=== PATIENT | female | born 1980 | race Caucasian/White ===

== ENCOUNTER → 2017-08-21 | Outpatient (CLI) | payer BC ==
[~2017-08-21] MED LIST: AMOX875 PO; BENTYL; BUSP5 PO; CALCA500CH PO; CITA10S PO; CYCL10 PO; DOCU100 PO; HYDACE5 PO; HYDACE5325; HYDMOR2 PO; HYDMOR4 PO; HYDR1TAB94 PO; Humulin N100 UNIT/1 SQ; IBUP600 PO; IBUP800 PO; INSLIS75I SC; INSUL100I SC; LABE100 PO; LABE200 PO; METF500 PO; METF500C PO; METO50ER PO; METR500 PO; MORP30ER PO; MULVITA PO; NAPR500 PO; NAPR500ERA PO; NUVARING; ONDA8 PO; OXYACE5T PO; PROACE100 PO; PROM25 PO; PROM25S PR; RXOXYACE PO; RXPROM25 PO; Roxicodone5 MG PO; SEPTRA; SULTRIDS PO; TAMS.4ER PO; TRAM50 PO; TRIBENZOR 40-51 EACH PO; VITAMINS; Venlafaxine HCl50 MG PO; Verotin-Gr Cap1 EACH PO; [UNRECOGNIZED DRUG - OTHER]; [UNRECOGNIZED DRUG - OTHER]; [UNRECOGNIZED DRUG - OTHER]
[2017-08-21 19:48] LABS: BASOPHILS ABSOLUTE AUTO 0.06 K/mm3 (0.00-0.23); BASOPHILS PERCENT AUTO 0 % (0-2); EOSINOPHILS ABSOLUTE AUTO 0.42 K/mm3 (0.00-0.68); EOSINOPHILS PERCENT AUTO 3 % (0-6); Hematocrit 39.9 % (33.0-51.0); Hemoglobin 13.1 g/dL (11.5-16.0); IMMATURE GRAN ABSOLUTE AUTO 0.21 K/mm3 (0.00-0.10); IMMATURE GRAN PERCENT AUTO 2 % (0-1); LYMPHOCYTES ABSOLUTE AUTO 2.92 K/mm3 (0.84-5.20); LYMPHOCYTES PERCENT AUTO 21 % (21-46); MONOCYTES ABSOLUTE AUTO 0.94 K/mm3 (0.16-1.47); MONOCYTES PERCENT AUTO 7 % (4-13); Mean Corpuscular HGB 29.9 pg (26.0-34.0); Mean Corpuscular HGB Conc 32.8 g/dL (31.5-36.5); Mean Corpuscular Volume 91 fL (80-100); Mean Platelet Volume 10.5 fL (9.1-12.4); NEUTROPHILS ABSOLUTE AUTO 9.26 K/mm3 (1.96-9.15); NEUTROPHILS PERCENT AUTO 67 % (41-73); Platelet Count 295 K/mm3 (150-400); RDW Coefficient Variation 14.7 % (11.7-14.2); RDW Standard Deviation 48.9 fL (35.1-46.3); Red Blood Cell Count 4.38 M/mm3 (3.80-5.20); White Blood Cell Count 13.81 K/mm3 (4.00-11.30)
[2017-08-21 20:09] LABS: Alanine Aminotransfer (ALT/SGP 25 U/L (12-78); Albumin, Blood 3.5 g/dL (3.4-5.0); Albumin/Globulin Ratio 0.9 (0.8-1.8); Alk Phos 115 U/L (50-136); Anion Gap 9 mmol/L (6-16); Aspartate Aminotrans (AST/SGOT 14 U/L (12-37); Bilirubin, Total 0.3 mg/dL (0.1-1.0); Blood Urea Nitrogen 10 mg/dL (8-24); Bun/Creatinine Ratio 16.1 (12.0-20.0); CO2, Blood 27 mmol/L (21-32); Calcium, Blood 9.2 mg/dL (8.5-10.1); Chloride, Blood 102 mmol/L (98-108); Creatinine, Blood 0.62 mg/dL (0.40-1.00); Glomerular Filtration Rate >60 (60-); Glucose, Blood 159 mg/dL (70-99); Potassium, Blood 3.5 mmol/L (3.5-5.5); Sodium, Blood 138 mmol/L (136-145); Total Protein, Blood 7.5 g/dL (6.4-8.2)
== END ==
LOC: LAB SHORT 19:27
PROVIDERS: Nurse Practitioner
DX: J02.9 Acute pharyngitis, unspecified (principal)
CPT/HCPCS: 80053; 85025

== ENCOUNTER 2020-01-20 18:25 | Emergency (ER) | payer OTHER, BC ==
[~2020-01-20] VITALS: Ht 162.6 cm; Wt 136.1 kg
[2020-01-20 19:09] LABS: BASOPHILS ABSOLUTE AUTO 0.06 K/mm3 (0.00-0.23); BASOPHILS PERCENT AUTO 1 % (0-2); EOSINOPHILS ABSOLUTE AUTO 0.29 K/mm3 (0.00-0.68); EOSINOPHILS PERCENT AUTO 3 % (0-6); Hemoglobin 14.1 g/dL (11.5-16.0); IMMATURE GRAN ABSOLUTE AUTO 0.07 K/mm3 (0.00-0.10); IMMATURE GRAN PERCENT AUTO 1 % (0-1); LYMPHOCYTES PERCENT AUTO 32 % (21-46); MONOCYTES ABSOLUTE AUTO 0.79 K/mm3 (0.16-1.47); MONOCYTES PERCENT AUTO 8 % (4-13); Mean Corpuscular HGB 30.7 pg (26.0-34.0); Mean Corpuscular HGB Conc 32.8 g/dL (31.5-36.5); Mean Corpuscular Volume 94 fL (80-100); Mean Platelet Volume 10.1 fL (9.1-12.4); NEUTROPHILS ABSOLUTE AUTO 5.43 K/mm3 (1.96-9.15); NEUTROPHILS PERCENT AUTO 56 % (41-73); Platelet Count 249 K/mm3 (150-400); RDW Coefficient Variation 14.5 % (11.7-14.2); RDW Standard Deviation 49.1 fL (35.1-46.3); Red Blood Cell Count 4.59 M/mm3 (3.80-5.20); White Blood Cell Count 9.74 K/mm3 (4.00-11.30)
[2020-01-20 19:27] LABS: Alanine Aminotransfer (ALT/SGP 38 U/L (12-78); Albumin, Blood 3.8 g/dL (3.4-5.0); Albumin/Globulin Ratio 1.1 (0.8-1.8); Alk Phos 79 U/L (50-136); Anion Gap 8 mmol/L (6-16); Aspartate Aminotrans (AST/SGOT 28 U/L (12-37); Bilirubin, Total 0.8 mg/dL (0.1-1.0); Blood Urea Nitrogen 13 mg/dL (8-24); Bun/Creatinine Ratio 23.1 (12.0-20.0); CO2, Blood 26 mmol/L (21-32); Calcium, Blood 9.5 mg/dL (8.5-10.1); Chloride, Blood 101 mmol/L (98-108); Creatinine, Blood 0.56 mg/dL (0.40-1.00); Globulin, Blood 3.5 g/dL (2.2-4.0); Glomerular Filtration Rate >60 (60-); Glucose, Blood 158 mg/dL (70-99); Potassium, Blood 3.9 mmol/L (3.5-5.5); Sodium, Blood 135 mmol/L (136-145); Total Protein, Blood 7.3 g/dL (6.4-8.2)
[2020-01-20] MEDS ORDERED: METF500 PO (21:44)
== END 2020-01-20 21:47 | disposition home or self-care (01) ==
LOC: ER 18:25
PROVIDERS: Emergency Medicine
DX: R51 Headache (principal); I10 Essential (primary) hypertension; F41.9 Anxiety disorder, unspecified; F32.9 Major depressive disorder, single episode, unspecified; E11.9 Type 2 diabetes mellitus without complications; Z87.891 Personal history of nicotine dependence
CPT/HCPCS: 36415; 80053; 85025; 93005; 93010; 96374; 99283-25; J1885; J2765

== ENCOUNTER → 2020-05-11 | Outpatient (CLI) | payer OTHER, BC | LOC: LAB SHORT 17:10 → LAB 17:10 | DX: D48.5 Neoplasm of uncertain behavior of skin (principal) | CPT/HCPCS: 87070; 87205 ==

== ENCOUNTER → 2021-04-25 | Outpatient (CLI) | payer OTHER, BC | LOC: LAB SHORT 17:40 → LAB 17:40 | DX: L08.9 Local infection of the skin and subcutaneous tissue, unspecified (principal) | CPT/HCPCS: 87070; 87077; 87186; 87205 ==

== ENCOUNTER 2021-05-22 17:07 | Inpatient (IN) | payer OTHER, BC ==
[~2021-05-22] VITALS: Ht 162.6 cm; Wt 132.0 kg
[2021-05-22 18:43] LABS: SARS-Cov-2 (COVID-19) PCR, MMC NEGATIVE (NEGATIVE)
[2021-05-22] MEDS ORDERED: ESCI10 PO (18:54)
[2021-05-22] MEDS ORDERED: Bystolic20 MG PO (18:55)
[2021-05-22] MEDS ORDERED: OLMESARTAN MEDO20 MG PO (18:55)
[2021-05-22 22:15] LABS: BASOPHILS ABSOLUTE AUTO 0.02 K/mm3 (0.00-0.23); BASOPHILS PERCENT AUTO 0 % (0-2); EOSINOPHILS ABSOLUTE AUTO 0.07 K/mm3 (0.00-0.68); EOSINOPHILS PERCENT AUTO 1 % (0-6); Hematocrit 42.5 % (33.0-51.0); Hemoglobin 14.1 g/dL (11.5-16.0); IMMATURE GRAN ABSOLUTE AUTO 0.04 K/mm3 (0.00-0.10); IMMATURE GRAN PERCENT AUTO 1 % (0-1); LYMPHOCYTES ABSOLUTE AUTO 1.51 K/mm3 (0.84-5.20); LYMPHOCYTES PERCENT AUTO 20 % (21-46); MONOCYTES PERCENT AUTO 9 % (4-13); Mean Corpuscular HGB Conc 33.2 g/dL (31.5-36.5); Mean Corpuscular Volume 93 fL (80-100); Mean Platelet Volume 10.7 fL (9.1-12.4); NEUTROPHILS ABSOLUTE AUTO 5.12 K/mm3 (1.96-9.15); NEUTROPHILS PERCENT AUTO 69 % (41-73); Platelet Count 189 K/mm3 (150-400); RDW Coefficient Variation 15.2 % (11.7-14.2); RDW Standard Deviation 52.2 fL (35.1-46.3); Red Blood Cell Count 4.55 M/mm3 (3.80-5.20); White Blood Cell Count 7.46 K/mm3 (4.00-11.30)
[2021-05-22 22:24] LABS: Anion Gap 9 mmol/L (6-16); Blood Urea Nitrogen 15 mg/dL (8-24); CO2, Blood 24 mmol/L (21-32); Calcium, Blood 9.4 mg/dL (8.5-10.1); Chloride, Blood 105 mmol/L (98-108); Glomerular Filtration Rate >60 (60-); Glucose, Blood 207 mg/dL (70-99); Magnesium, Blood 1.5 mg/dL (1.6-2.4); Potassium, Blood 3.4 mmol/L (3.5-5.5); Sodium, Blood 138 mmol/L (136-145)
[2021-05-23 04:22] LABS: BASOPHILS ABSOLUTE AUTO 0.01 K/mm3 (0.00-0.23); BASOPHILS PERCENT AUTO 0 % (0-2); EOSINOPHILS ABSOLUTE AUTO 0.01 K/mm3 (0.00-0.68); EOSINOPHILS PERCENT AUTO 0 % (0-6); Hematocrit 41.1 % (33.0-51.0); Hemoglobin 13.4 g/dL (11.5-16.0); IMMATURE GRAN ABSOLUTE AUTO 0.02 K/mm3 (0.00-0.10); IMMATURE GRAN PERCENT AUTO 0 % (0-1); LYMPHOCYTES ABSOLUTE AUTO 0.75 K/mm3 (0.84-5.20); LYMPHOCYTES PERCENT AUTO 13 % (21-46); MONOCYTES ABSOLUTE AUTO 0.14 K/mm3 (0.16-1.47); MONOCYTES PERCENT AUTO 3 % (4-13); Mean Corpuscular HGB 30.3 pg (26.0-34.0); Mean Corpuscular HGB Conc 32.6 g/dL (31.5-36.5); Mean Corpuscular Volume 93 fL (80-100); Mean Platelet Volume 10.8 fL (9.1-12.4); NEUTROPHILS ABSOLUTE AUTO 4.73 K/mm3 (1.96-9.15); NEUTROPHILS PERCENT AUTO 83 % (41-73); Platelet Count 197 K/mm3 (150-400); RDW Coefficient Variation 15.2 % (11.7-14.2); RDW Standard Deviation 51.9 fL (35.1-46.3); Red Blood Cell Count 4.42 M/mm3 (3.80-5.20); White Blood Cell Count 5.66 K/mm3 (4.00-11.30)
[2021-05-23 04:41] LABS: Anion Gap 10 mmol/L (6-16); Blood Urea Nitrogen 11 mg/dL (8-24); Bun/Creatinine Ratio 20.3 (12.0-20.0); CO2, Blood 20 mmol/L (21-32); Calcium, Blood 8.9 mg/dL (8.5-10.1); Chloride, Blood 108 mmol/L (98-108); Creatinine, Blood 0.54 mg/dL (0.40-1.00); Glomerular Filtration Rate >60 (60-); Glucose, Blood 298 mg/dL (70-99); Potassium, Blood 4.1 mmol/L (3.5-5.5); Sodium, Blood 138 mmol/L (136-145)
--- NOTE | 2021-05-23 08:07 | NUR ---
ASSUMED CARE THIS AM PT. ALERT AND ORIENTED. SITTING UP IN BED ON RA. PT. DENIES PAIN THIS AM. PT DENIES ANY FEELING OF SOB. REPORTS BREATHING FEELS "MUCH BETTER" THIS AM. PT. INDEPENDENT IN ROOM, ABLE TO REPOSITION SELF NEEDED. VSS THIS AM. NADN. CALL LIGHT IN REACH, BED IN LOW POSITION.
--- NOTE | 2021-05-23 10:49 | NUR ---
rounded on pt. awaiting visit from to be discharged home. resting comfortably in bed. sujey.
--- NOTE | 2021-05-23 14:59 | NUR ---
ROUNDED ON PT. RESTING COMFORTABLY IN BED, PT AT BEDSIDE. AWAITING LAB WORK TO DETERMIN IF PT WILL BE STAYING TONIGHT OR GETTING DISCHARGED HOME. VSS AT THIS TIME.
[2021-05-23] MEDS ORDERED: PANT20 PO (16:09)
[2021-05-23] MEDS ORDERED: ALBU90OI INH (16:10)
[2021-05-23] MEDS ORDERED: SYMBICORT 80-10.2 GM INH (16:11)
[2021-05-23] MEDS ORDERED: Prednisone10 MG (16:13)
--- NOTE | 2021-05-23 16:40 | NUR ---
DISCHARGE. PT. DISCHARGED TO HOME. PT TO DRIVE PT HOME. TAKEN TO EXIT VIA WHEELCHAIR. PRIOR TO DISCHARGE PT. LS CLEAR, OCCASIONAL DRY COUGH WITH WHEEZE. SOLUMEDROL DOSE GIVEN PRIOR TO DISCHARGE. IV REMOVED PRIOR TO DSICHARGE. PT TO FOLLOW UP WITH PCP AND ENCOURAGED TO RETURN FOR WORSENING SYMPTOMS. MEDICATIONS CALLED INTO [facility] PER PT. REQUEST. VSS UPON DISCHARGE.
== END 2021-05-23 16:41 | disposition home or self-care (01) | DRG 202 ==
LOC: ER 17:07 → ERHOLD 23:51 → PCU 05-23 01:24
PROVIDERS: Physician Assistant; Student in an Organized Health Care Education/Training Program; ADMIT Internal Medicine
DX: J45.901 Unspecified asthma with (acute) exacerbation (principal); Z68.42 Body mass index [BMI] 45.0-49.9, adult; E66.01 Morbid (severe) obesity due to excess calories; E83.42 Hypomagnesemia; Z20.822 Contact with and (suspected) exposure to COVID-19; E11.9 Type 2 diabetes mellitus without complications; F41.9 Anxiety disorder, unspecified; F32.A Depression, unspecified; K21.9 Gastro-esophageal reflux disease without esophagitis; G47.33 Obstructive sleep apnea (adult) (pediatric); E87.6 Hypokalemia; Z87.442 Personal history of urinary calculi; Z88.1 Allergy status to other antibiotic agents; Z88.5 Allergy status to narcotic agent; Z91.041 Radiographic dye allergy status; Z90.49 Acquired absence of other specified parts of digestive tract; Z98.890 Other specified postprocedural states; Z79.84 Long term (current) use of oral hypoglycemic drugs; Z79.899 Other long term (current) drug therapy; Z71.6 Tobacco abuse counseling
CPT/HCPCS: 36415; 71045; 80048; 82947; 83735; 83880; 84145; 85025; 93005; 93010; 94640; 94644; 94645; 94660; 94760; 96374; 99285-25; A9270; C9113; J1815; J2930; J3475; J7030; J7512; U0004

== ENCOUNTER 2025-02-25 14:17 | Inpatient (IN) | payer OTHER, BC ==
[~2025-02-25] VITALS: Ht 170.2 cm; Wt 117.6 kg
[~2025-02-25 14:17] MED LIST changes: +ALBU90OI INH; +Bystolic20 MG PO; +ESCI10 PO; +OLMESARTAN MEDO20 MG PO; +PANT20 PO; +Prednisone10 MG; +SYMBICORT 80-10.2 GM INH
[2025-02-25] MEDS ORDERED: Ipratropium/Albuterol SulF 2.5-0.5MG/3 ML Amp INH PRN (14:55)
[2025-02-25 15:26] LABS: BASOPHILS ABSOLUTE AUTO 0.02 K/mm3 (0.00-0.23); BASOPHILS PERCENT AUTO 0 % (0-2); EOSINOPHILS ABSOLUTE AUTO 0.09 K/mm3 (0.00-0.68); EOSINOPHILS PERCENT AUTO 2 % (0-6); Hematocrit 38.1 % (33.0-51.0); Hemoglobin 12.8 g/dL (11.5-16.0); IMMATURE GRAN ABSOLUTE AUTO 0.02 K/mm3 (0.00-0.10); IMMATURE GRAN PERCENT AUTO 0 % (0-1); LYMPHOCYTES ABSOLUTE AUTO 0.83 K/mm3 (0.84-5.20); LYMPHOCYTES PERCENT AUTO 15 % (21-46); MONOCYTES ABSOLUTE AUTO 0.57 K/mm3 (0.16-1.47); MONOCYTES PERCENT AUTO 10 % (4-13); Mean Corpuscular HGB Conc 33.6 g/dL (31.5-36.5); Mean Corpuscular Volume 88 fL (80-100); NEUTROPHILS ABSOLUTE AUTO 4.19 K/mm3 (1.96-9.15); NEUTROPHILS PERCENT AUTO 73 % (41-73); NRBC ABSOLUTE 0.00 K/mm3 (0.00-0.02); NRBC Auto 0.0 /100 WBC (0.0-0.2); Platelet Count 219 K/mm3 (150-400); RDW Coefficient Variation 14.5 % (11.7-14.2); RDW Standard Deviation 46.6 fL (35.1-46.3)
[2025-02-25] MEDS ORDERED: Albuterol 2.5 MG/3 ML VIAL INH SCH (15:35)
[2025-02-25] MEDS ORDERED: NS 1,000 ML IV SCH ×2 (15:40→16:40)
[2025-02-25] MEDS ORDERED: CefTRIAXone Sodium 1,000 MG in NS 50 ML IV ONE (15:40)
[2025-02-25 15:45] LABS: Alanine Aminotransfer (ALT/SGP 27.0 U/L (12-78); Albumin, Blood 2.6 g/dL (3.4-5.0); Albumin/Globulin Ratio 0.5 (0.8-1.8); Anion Gap 11.0 mmol/L (3-11); Aspartate Aminotrans (AST/SGOT 26.0 U/L (12-37); Bilirubin, Total 0.7 mg/dL (0.1-1.0); Blood Urea Nitrogen 12.0 mg/dL (8-24); CO2, Blood 23.0 mmol/L (21-32); Calcium, Blood 8.7 mg/dL (8.5-10.1); Chloride, Blood 105.0 mmol/L (98-108); Creatinine, Blood 0.6 mg/dL (0.40-1.00); Globulin, Blood 4.9 g/dL (2.2-4.0); Glucose, Blood 142.0 mg/dL (70-99); Potassium, Blood 3.6 mmol/L (3.5-5.5); Sodium, Blood 135.0 mmol/L (136-145); Total Protein, Blood 7.5 g/dL (6.4-8.2)
[2025-02-25] MEDS ORDERED: Insulin Human Lispro 100 Units/ML 3ML Syringe SC SCH (16:30)
[2025-02-25 16:34] LABS: Influenza A, PCR NEGATIVE (NEGATIVE); Influenza B, PCR NEGATIVE (NEGATIVE); Resp Syncytial Virus, PCR NEGATIVE (NEGATIVE); SARS-Cov-2 (COVID-19) PCR, MMC NEGATIVE (NEGATIVE)
[2025-02-25] MEDS ORDERED: Prochlorperazine Edisylate 10 mg Vial IV PRN (16:35)
[2025-02-25] MEDS ORDERED: Ipratropium/Albuterol SulF 2.5-0.5MG/3 ML Amp INH SCH (16:50)
[2025-02-25] MEDS ORDERED: Albuterol 2.5 MG/3 ML VIAL INH PRN (16:50)
[2025-02-25] MEDS ORDERED: Lactobacil 2-S.Thermo-Bifido 1 1 Cap PO SCH (21:00)
[2025-02-25] MEDS ORDERED: NS 1,000 ML IV ONE ×2 (21:35→23:50)
[2025-02-25] MEDS ORDERED: NEBI10 PO (22:22)
[2025-02-25] MEDS ORDERED: OZEMPIC2 MG/0.75 SC (22:24)
[2025-02-26] VITALS (7 sets, daily range): BP systolic 106–167; BP diastolic 79–94
[2025-02-26 05:45] LABS: Hematocrit 35.1 % (33.0-51.0); Hemoglobin 11.3 g/dL (11.5-16.0); Mean Corpuscular HGB Conc 32.2 g/dL (31.5-36.5); Mean Corpuscular Volume 92 fL (80-100); NRBC ABSOLUTE 0.00 K/mm3 (0.00-0.02); NRBC Auto 0.0 /100 WBC (0.0-0.2); Platelet Count 185 K/mm3 (150-400); RDW Coefficient Variation 14.5 % (11.7-14.2); RDW Standard Deviation 49.2 fL (35.1-46.3)
[2025-02-26 06:04] LABS: Albumin, Blood 2.2 g/dL (3.4-5.0); Anion Gap 12 mmol/L (3-11); Blood Urea Nitrogen 10 mg/dL (8-24); CO2, Blood 18 mmol/L (21-32); Calcium, Blood 7.9 mg/dL (8.5-10.1); Chloride, Blood 109 mmol/L (98-108); Creatinine, Blood 0.47 mg/dL (0.40-1.00); Glucose, Blood 224 mg/dL (70-99); Magnesium, Blood 2.0 mg/dL (1.6-2.4); Phosphorus, Blood 2.4 mg/dL (2.5-4.9); Potassium, Blood 3.7 mmol/L (3.5-5.5); Sodium, Blood 135 mmol/L (136-145)
--- NOTE | 2025-02-26 06:18 | NUR ---
PT ARRIVED TO FLOOR FROM ED VIA STRETCHER. PT ABLE TO AMBULATE INDEPENDENTLY. PT HAS INTERMITTENT NON-PRODUCTIVE COUGH. PT ALERT&ORIENTED X 4. VSS. PT HAS HOME CPAP AT BEDSIDE. PT SPO2 >92% ON ROOM AIR. PT STATES SHE CAN'T TOLERATE HOME CPAP TONIGHT. PT PLACED ON 2L O2 VIA NASAL CANNULA WHILE SLEEPING. IV FLUIDS INFUSING. PT HAS NO COMPLAINTS AND SHOWS NO S/S OF RESPIRATORY DISTRESS. PT HAS DYSPNEA ON EXERTION.
[2025-02-26] MEDS ORDERED: Enoxaparin 40 MG/0.4 ML SYR SC SCH (09:00)
[2025-02-26] MEDS ORDERED: CefTRIAXone Sodium 1,000 MG in NS 100 ML IV SCH (12:00)
--- NOTE | 2025-02-26 17:29 | NUR ---
NOTE PT AWAKE SNUGGLING WITH DAUGHTERS. LUNGS WITH EXP WHEEZES. VOICE QUALITY STRAINED. OCCASIONAL DRY COUGH. ATTEMPTED TO WEAN TO RA. PT SPO2 WAS 93% ON 2L AND HR 85. WITH WEANING HR INCREASED TO 110 AND SPO2 93%. OXYGEN HUMIDIFIED. PT C/O OF HEADACHE. MEDICATED WITH TYLENOL. NOT EFFECTIVE. HUMIDIFIED OXYGEN AND GAE HER A COOL CLOTH. BLOOD SUGARS ELEVATED COVERAGE PER SLIDING SCALE. PT UP AD BENJIE TO BATHROOM. GAIT STEADY. VOIDING WELL. RIGHT AC IV INFUSING WITHOUT DIFFICULTY. CARE ONGOING.
[2025-02-27] VITALS (7 sets, daily range): BP systolic 119–174; BP diastolic 74–93
[2025-02-27] MEDS ORDERED: HYDROcodone 5-APAP 325 TAB PO ONE (00:51)
--- NOTE | 2025-02-27 06:43 | NUR ---
PT COMPLAINED OF A HEADACHE MOST OF THE NIGHT. PT WAS MEDICATED WITH TYLENOL PER ORDER. PT STATED SHE HAD ABOUT 30 MINUTES OF RELIEF. PT ALSO HAD AN EPISODE OF LOCALIZED CHEST PAIN. DR. RAYA NOTIFIED. EKG OBTAINED. FINDINGS WERE NORMAL SINUS TACHYCARDIA WITH A RATE OF 101. DR. RAYA CAME TO BEDSIDE TO ASSESS PT. ONE TIME ORDER OF PAIN MEDICATION GIVEN. PT SLEPT THE REST OF THE NIGHT WITH HOME CPAP ON. BED REMAINED LOCKED IN LOWEST POSITION. CALL LIGHT WITHIN REACH.
--- NOTE | 2025-02-27 12:00 | NUR ---
NURSE NOTE: MD. DAS NOTIFIED OF 397 CBG AT 1200. MEDIUM SLIDING SCALE INSULIN DC'D AMD HIGH SLIDING SCALE ORDERED.
[2025-02-27] MEDS ORDERED: Insulin Human Lispro 100 Units/ML 3ML Syringe SC SCH (12:05)
[2025-02-27] MEDS ORDERED: Ketorolac Tromethamine 15mg Vial IV PRN (14:30)
--- NOTE | 2025-02-27 16:33 | NUR ---
Nurse Note: MD Arita notified of 440 CBG at 1634. Updated one time insulin dose to 18 units and recheck CBG at 1734.
[2025-02-27] MEDS ORDERED: Insulin Human Lispro 100 Units/ML 3ML Syringe SC ONE (16:50)
--- NOTE | 2025-02-27 18:13 | NUR ---
SHIFT SUMMARY: PT A/O X4, ABLE TO COMMUNICATE NEEDS, PLEASANT AND COOPERATIVE WITH CARE, PERSISTENT TEMPORAL HEADACHE MANAGED WITH TYLENOL AND TORADOL PER EMAR. PT DENIES CHEST PAIN OR PRESSURE, ENDORSES PLEURITIC PAIN WITH COUGH. PT WEANED TO 1L HUMIDIFIED O2 VIA NC, SAT >90%, PT STATES THAT SHE WEARS A HOME CPAP AT NIGHT BUT DID NOT TOLERATE IT LAST NIGHT AND USED 2L O2 INSTEAD. CBG'S CONSISTENTLY HIGH THIS SHIFT RANGING FROM 274-440, MD DAS NOTIFIED AND COVERAGE INCREASED FROM MEDIUM SLIDING SCALE TO A HIGH SLIDING SCALE AND ADDED A 1 TIME 3 UNIT ADDITION, MEDICATED PER EMAR, CBG DECREASED FROM 440 TO 297 AFTER HIGH SLIDING SCALE AND 1 TIME DOSE. INDEPENDENT IN ROOM. PT STATED, "I'M STARTING TO FEEL BETTER AND HAVE EVEN BEEN ABLE TO CATCH UP ON SOME OF MY HOMEWORK." AND CHILDREN TO BEDSIDE FOR A VISIT.
[2025-02-28 03:04] VITALS: BP 166/89
[2025-02-28 06:06] LABS: Hematocrit 32.0 % (33.0-51.0); Hemoglobin 10.3 g/dL (11.5-16.0); Mean Corpuscular HGB Conc 32.2 g/dL (31.5-36.5); Mean Corpuscular Volume 89 fL (80-100); NRBC ABSOLUTE 0.00 K/mm3 (0.00-0.02); NRBC Auto 0.0 /100 WBC (0.0-0.2); Platelet Count 278 K/mm3 (150-400); RDW Coefficient Variation 14.2 % (11.7-14.2); RDW Standard Deviation 46.3 fL (35.1-46.3)
[2025-02-28 06:22] LABS: Anion Gap 9.0 mmol/L (3-11); Blood Urea Nitrogen 22.0 mg/dL (8-24); CO2, Blood 26.0 mmol/L (21-32); Calcium, Blood 8.1 mg/dL (8.5-10.1); Chloride, Blood 105.0 mmol/L (98-108); Creatinine, Blood 0.55 mg/dL (0.40-1.00); Glucose, Blood 278.0 mg/dL (70-99); Potassium, Blood 3.9 mmol/L (3.5-5.5); Sodium, Blood 136.0 mmol/L (136-145)
[2025-02-28 07:48] VITALS: BP 149/94
[2025-02-28 11:50] VITALS: BP 164/88
[2025-02-28] MEDS ORDERED: Insulin Human Lispro 100 Units/ML 3ML Syringe SC ONE (12:10)
[2025-02-28 15:30] VITALS: BP 165/111
[2025-02-28 18:00] VITALS: BP 167/89
--- NOTE | 2025-02-28 18:29 | NUR ---
SHIFT SUMMARY: PT A&OX4. FOLLOWS COMMANDS AND MAKES NEEDS KNOWN TO STAFF. PT WAS ABLE TO GET UP TO THE BATHROOM INDEPENDENTLY AND ALSO TOOK A SHOWER TODAY. PT HAD A MIGRAIN MOST OF THE DAY THAT WAS RESOLVED WITH TORADOL. PT WAS ALSO HYPERTENSIVE. PROVIDER AWARE OF BLOOD PRESSURE. PT DENIED ANY COMPLAINTS OF CP, PRESSURE, TIGHTNESS OR SOB. BESIDES HTN, VSS. PT DID NOT HAVE ANY PROGRESS WITH COUGHING UP ANY SPUTUM. NO OTHER SIGNIFICANT EVENTS HAPPENED DURING THIS SHIFT. WILL CONTINUE TO CARE FOR PT TILL END OF SHIFT.
[2025-02-28 20:59] VITALS: BP 151/93
[2025-03-01 01:16] VITALS: BP 176/93
[2025-03-01 06:01] VITALS: BP 184/96
[2025-03-01] MEDS ORDERED: HydrALAZINE HCl 20 MG / ML 1ML Vial IV ONE (06:10)
[2025-03-01 06:40] VITALS: BP 152/83
--- NOTE | 2025-03-01 06:44 | NUR ---
SUMMARY: PT AOX4, ON CPAP NOC, IND IN ROOM. CONT PULSE OX ON. RT STATES THEY DID NOT HAVE ENOUGH TIME TO DO SLEEP STUDY OVERNIGHT DUE TO TRANSFER. PT GIVEN PRN IV HYDRALAZINE THIS AM FOR BP. EFFECTIVE. ABLE TO CALL APPROPRIATELY, CALL LIGHT WITHIN REACH AND BED IN LOW POSITION.
[2025-03-01 07:51] VITALS: BP 153/85
[2025-03-01] MEDS ORDERED: NS 250 ML IV PRN (10:50)
[2025-03-01] MEDS ORDERED: BENZ100A PO (15:16)
[2025-03-01] MEDS ORDERED: AZIT500 PO (15:17)
[2025-03-01] MEDS ORDERED: VISBIOME 112.51 EACH PO (15:17)
[2025-03-01] MEDS ORDERED: Prednisone10 MG PO (15:18)
[2025-03-01] MEDS ORDERED: CEFD300 PO (15:18)
[2025-03-01] MEDS ORDERED: SPIRIVA RESPIMAT4 G3 INH (15:19)
[2025-03-01 15:51] VITALS: BP 148/81
--- NOTE | 2025-03-01 16:53 | NUR ---
Patient discharged home with spouse. Patient with all questions answered, new prescriptions faxed to [facility]), medication list/discharge education discussed prior to discharge. All patient belongings given to patient and patient transported via wheelchair to entrance.
== END 2025-03-01 16:50 | disposition home or self-care (01) | DRG 871 ==
LOC: ER 14:17 → PCU 16:28 → MEDS 03-01 01:05
PROVIDERS: Internal Medicine; Student in an Organized Health Care Education/Training Program; ADMIT Internal Medicine
PROC: 5A09357 Assistance with Respiratory Ventilation, Less than 24 Consecutive Hours, Continuous Positive Airway Pressure (ICD-10-PCS; principal; 2025-02-25)
PROC: 3E03329 Introduction of Other Anti-infective into Peripheral Vein, Percutaneous Approach (ICD-10-PCS; 2025-02-25)
DX: A41.9 Sepsis, unspecified organism (principal); J18.9 Pneumonia, unspecified organism; J96.01 Acute respiratory failure with hypoxia; J44.1 Chronic obstructive pulmonary disease with (acute) exacerbation; E87.1 Hypo-osmolality and hyponatremia; J44.0 Chronic obstructive pulmonary disease with (acute) lower respiratory infection; G47.33 Obstructive sleep apnea (adult) (pediatric); I10 Essential (primary) hypertension; F41.8 Other specified anxiety disorders; E11.65 Type 2 diabetes mellitus with hyperglycemia; K21.9 Gastro-esophageal reflux disease without esophagitis; E66.9 Obesity, unspecified; Z90.49 Acquired absence of other specified parts of digestive tract; Z98.891 History of uterine scar from previous surgery; Z98.890 Other specified postprocedural states; Z87.891 Personal history of nicotine dependence; Z88.5 Allergy status to narcotic agent; Z88.8 Allergy status to other drugs, medicaments and biological substances; Z79.84 Long term (current) use of oral hypoglycemic drugs; Z79.51 Long term (current) use of inhaled steroids; Z79.52 Long term (current) use of systemic steroids; Z79.899 Other long term (current) drug therapy
CPT/HCPCS: 36415; 71046; 80048; 80053; 80069; 82947; 83605; 83735; 84145; 85025; 85027; 87040; 87637; 93005; 93010; 94640; 94664; 94760; 94762; 96365; 96375; 99285-25; A9270; J0360; J0456; J0696; J0780; J1650; J1885; J2919; J7030; J7050